=== PATIENT | female | born 1950 | race Caucasian/White ===

== ENCOUNTER 2020-03-11 14:58 | Observation (INO) | payer MEDICARE, BC ==
[2020-03-11] MEDS ORDERED: Aspirin 81 mg Enteric Coated Tablet ONE ×2 (15:22→15:28)
[2020-03-11 15:27] LABS: #Basophils 0.1 thou/uL (0.0-0.2); #Lymphocytes 1.8 thou/uL (1.20-3.40); #Monocytes 0.6 thou/uL (0.11-0.59); %Basophils 0.7 % (0.0-1.0); %Eosinophils 0.4 % (0.0-10.0); %Lymphocytes 19.2 % (21.0-51.0); %Monocytes 6.6 % (0.0-10.0); %Neutrophils 73.2 % (42.0-75.0); Hemoglobin 16.5 g/dL (12.0-16.0); Mean Corpuscular HGB CONC 34.3 g/dL (32.0-36.0); Mean Corpuscular Volume 93.4 fL (78.0-98.0); Mean Platelet Volume 7.2 fL (7.4-10.4); Platelet Count 206 thou/uL (130-400); RBC Distribution Width 11.7 % (11.5-14.5); Red Blood Cell (RBC) Count 5.14 mill/uL (4.20-5.40); White Blood Cell (WBC) Count 9.5 thou/uL (4.8-10.8)
[2020-03-11] MEDS ORDERED: Nitroglycerin 2% Ointment 1 INCH/1 GM Packet ONE (15:28)
[2020-03-11] MEDS ORDERED: Magnesium 2 GM/50 ML BAG (IN WATER) ONE (15:28)
[2020-03-11 15:51] LABS: ALT (SGPT) 19 U/L (8-55); AST (SGOT) 16 U/L (5-34); Albumin 4.8 g/dL (3.4-4.8); Alkaline Phosphatase 93 U/L (40-110); Anion Gap 15 mmol/L (10-20); BUN (Urea Nitrogen) 21 mg/dL (9.8-20.1); Bilirubin, Total 0.7 mg/dL (0.2-1.2); Calc. Creatinine Clearance 0 mL/min (70-130); Calcium 9.8 mg/dL (7.8-10.44); Carbon Dioxide 23 mmol/L (23-31); Chloride 103 mmol/L (98-107); Estimated GFR-MDRD 50; Globulin 3.3 g/dL (2.4-3.5); Glucose 103 mg/dL (80-115); Potassium 4.3 mmol/L (3.5-5.1); Protein, Total 8.1 g/dL (6.0-8.3); Sodium 137 mmol/L (136-145)
--- NOTE | 2020-03-11 15:53 | RAD ---
PORTABLE CHEST: INDICATION: Hypertension. COMPARISON: 12/16/2013. FINDINGS: Lungs appear clear. No infiltrate or vascular congestion. Heart size upper normal and stable. IMPRESSION: No acute process. POS: AGW
[2020-03-11 16:03] LABS: Magnesium 2.3 mg/dL (1.6-2.6)
[2020-03-11 16:10] LABS: Bacteria/HPF None Seen HPF (None Seen); Bilirubin Negative (Negative); Blood, Urine Negative (Negative); Clarity Clear (Clear); Glucose, Urine (Dipstick) Normal (Negative); Ketone, Urine 10 mg/dL (Negative); Leukocyte 250 Leu/uL (Negative); Nitrite Negative (Negative); Protein, Urine (Dipstick) Negative (Neg-Trace); RBC/HPF 0-3 HPF (0-3); Specific Gravity, Urine 1.012 (1.002-1.036); Squamous Epithelial 0-3 HPF (0-3); Urobilinogen Normal mg/dL (Less than 2); pH, Urine 6.5 (5.0-9.0)
[2020-03-11 20:13] VITALS: BMI 27.9
[2020-03-11] MEDS ORDERED: cloNIDine 0.1 MG TAB PO PRN (20:32)
--- NOTE | 2020-03-11 21:29 | HP ---
TIME OF ASSESSMENT: 1800 CHIEF COMPLAINT: Chest tightness and elevated blood pressure. HISTORY OF PRESENT ILLNESS: Ms. Ramirez is a 69-year-old woman, who presented to the emergency department due to a severely elevated blood pressure in the 220s with associated tingling to the left side of her face. She touched base with her auto parts manager, Dr. Brice, who advised her to come in to the emergency department. Patient states she has been struggling with control of her blood pressure for the last couple of weeks. States she had followup with Dr. Brice and was noted to have a blood pressure in the 150s consistently despite being on ramipril. It was decided at that time to add on p.r.n. clonidine. She states she was seen at [facility] recently due to significantly elevated blood pressure in the 190s. She was sent home on metoprolol and states that it made her feel badly. She reports feeling as if it was bringing her blood pressure down too much. The patient therefore discontinued and followed up with her auto parts manager, Dr. Brice, who then put her on low-dose Coreg. Patient states the moment she began taking Coreg, she was feeling nauseated. Reports having "awareness of my heart." Denies experiencing palpitations and denies any chest pain, but does report feeling tightness on occasion. States that she felt "completely off." States she tends to have unusual reactions to most medications. She called the auto parts manager election judge, which was Dr. Carr and was advised to stop the Coreg. For her elevated blood pressure, she was advised to take clonidine. Today, she could not get control of her blood pressure with the ramipril and clonidine and therefore opted to come into the ER. She does recall having some tightness in her chest again today. Denies any shortness of breath. Has not had any cough or hemoptysis. At present, she is asymptomatic. Her symptoms have resolved. She was supposed to see Dr. Brice today, but since she felt unwell, she had been advised to come to the ED. Patient reports having a cath in the past, but does not recall how long ago. Patient did report suspicion of being dehydrated. States that she has not had much fluid intake in the last 2 to 3 days and wonders if that is what made her feel generally unwell. EMERGENCY DEPARTMENT COURSE: In the emergency department, she had an EKG done showing normal sinus rhythm with a heart rate of 99, QTc 444. A chest x-ray was done and showed no acute process. She had laboratory studies done, which showed white count 9.5, hemoglobin 16.5, platelets 206, hematocrit 48, and neutrophils 73.2. D-dimer negative. BUN 21, creatinine 1.09, and GFR 50. In the past, her GFR has been in the high 60s. Glucose 103. LFTs unremarkable. Troponin negative x2. Lactic acid normal. Urinalysis done showed 250 leukocytes, 10 ketones, and 7 to 10 white blood cells. No bacteria. No nitrites. She was started on levofloxacin for suspected UTI, was given 1 L of normal saline. She was given 2 g of magnesium sulfate, 325 mg of aspirin, and put on Nitro-Bid 1 inch. Her blood pressure did eventually improve to 137/70. PAST MEDICAL HISTORY: 1. Hypertension. 2. GERD. 3. Hiatal hernia. 4. History of SVT, status post ablation. PAST SURGICAL HISTORY: 1. Cardiac ablation. 2. Appendectomy. 3. . 4. Hysterectomy. SOCIAL HISTORY: Patient denies any tobacco use, alcohol consumption, or illicit drug use. She is fully independent. Lives with her . ALLERGIES: 1. HYDROCHLOROTHIAZIDE. 2. NIACIN. 3. PENICILLIN. 4. SULFA. CURRENT MEDICATIONS: 1. Clonidine. 2. Xanax. 3. Ramipril. 4. Prilosec. PHYSICAL EXAMINATION: GENERAL: Patient appears thin, well developed, well nourished, is in no acute distress. VITAL SIGNS: Temperature 97.7, pulse 96, blood pressure 137/70, respirations 15, and O2 saturation 98% on room air. HEENT: Normocephalic and atraumatic. Pupils are equal, round, and reactive to light. Sclerae icterus. Oropharynx is clear. NECK: Supple. LUNGS: Clear to auscultation bilaterally, without any wheezes, rales, or rhonchi. CARDIAC: Regular rate and rhythm. No reproducible chest tenderness on palpation. ABDOMEN: Soft, nontender, and nondistended. No epigastric discomfort. No guarding or rigidity. No renal angle tenderness. EXTREMITIES: No lower leg swelling or edema. Peripheral pulses strong and equal bilaterally. SKIN: Warm and dry. There is some reduced skin turgor. NEUROLOGIC: Alert and oriented x3. No neuro deficits on exam. Speech normal. Facial sensation normal. Facial movements intact. No neuro deficits. INVESTIGATIONS: As mentioned above in HPI. IMPRESSION AND PLAN: Ms. Ramirez is a pleasant 69-year-old woman, who is being admitted for management of the followin. Hypertensive urgency. Appears to be under control following Nitro-Bid and magnesium given in the ED. Blood pressure has improved to the 130s. We will continue with p.r.n. antihypertensives. Patient is requesting to be seen by her auto parts manager, Dr. Brice, for further management of her blood pressure given her sensitivity to most medications. 2. Chest pain. Patient with complaints of chest tightness associated with the elevated blood pressure. States that has happened in the recent days and she is unable to describe between indigestion versus cardiac type pain. States it feels differently than it has in the past with indigestion. We will continue to trend troponins. EKG showed normal sinus rhythm with no ST changes or T-wave abnormalities. We will keep her n.p.o. and schedule stress test for the morning. 3. Gastroesophageal reflux disease. We will start pantoprazole 20 mg p.o. b.i.d. 4. Urinary tract infection. Patient was started on levofloxacin in the ED for presumed urinary tract infection. Urinalysis, however, shows 250 leukocytes, 7 to 10 white blood cells, no bacteria. No nitrites. She has been afebrile and denies any urinary symptoms. We will hold further antibiotics until urine culture done. No other source for possible infection. 5. Dehydration. Patient is clinically dehydrated with reduced skin turgor and states she has been drinking less over the last 3 days. Creatinine is normal, but GFR slightly reduced from baseline. We will give gentle hydration. 6. Deep venous thrombosis prophylaxis with mechanical SCDs. 7. Code status. Full. Surrogate decision maker is her , Carlos A Ramirez. 8. Primary care physician is Dr. Brian Sherwood. Case discussed with attending, who agrees with plan of care as described above. Job ID: [id number]
[2020-03-11 21:50] LABS: Troponin I Less than 0.010 ng/mL (< 0.028)
[2020-03-11] MEDS: Sodium Chloride 0.45% 1,000 ML IV SCH (23:32)
[2020-03-12 04:56] LABS: Anion Gap 12 mmol/L (10-20); BUN (Urea Nitrogen) 17 mg/dL (9.8-20.1); Calc. Creatinine Clearance 83 mL/min (70-130); Calcium 8.6 mg/dL (7.8-10.44); Carbon Dioxide 21 mmol/L (23-31); Chloride 109 mmol/L (98-107); Estimated GFR-MDRD 70; Glucose 95 mg/dL (80-115); Potassium 4.3 mmol/L (3.5-5.1); Sodium 138 mmol/L (136-145)
[2020-03-12 05:15] LABS: #Lymphocytes 1.9 thou/uL (1.20-3.40); #Monocytes 0.6 thou/uL (0.11-0.59); #Neutrophils 3.3 thou/uL (1.40-6.50); %Basophils 0.6 % (0.0-1.0); %Eosinophils 0.7 % (0.0-10.0); %Lymphocytes 32.2 % (21.0-51.0); %Monocytes 9.7 % (0.0-10.0); %Neutrophils 56.8 % (42.0-75.0); Hemoglobin 13.1 g/dL (12.0-16.0); Mean Corpuscular HGB CONC 31.9 g/dL (32.0-36.0); Mean Corpuscular Hemoglobin 29.9 pg (27.0-31.0); Mean Corpuscular Volume 93.8 fL (78.0-98.0); Mean Platelet Volume 7.7 fL (7.4-10.4); Platelet Count 176 thou/uL (130-400); RBC Distribution Width 11.8 % (11.5-14.5); Red Blood Cell (RBC) Count 4.37 mill/uL (4.20-5.40); White Blood Cell (WBC) Count 5.8 thou/uL (4.8-10.8)
--- NOTE | 2020-03-12 09:57 | PDOC.HOSPP ---
- Subjective Encounter Date: 03/12/20 Encounter Time: 09:49 Subjective: feels welltoday,long hx por BPcontrol,multiple madicine intolerance - Objective Vital Signs & Weight: Vital Signs (12 hours) Temp Pulse Resp BP Pulse Ox 03/12/20 08:00 97.6 F 63 16 116/63 93 L 03/12/20 03:00 98.3 F 71 18 107/56 L 96 03/11/20 23:38 83 110/64 Weight Weight 173 lb 4.8 oz I&O: 03/11/20 03/12/20 03/13/20 06:59 06:59 06:59 Intake Total 600 Output Total 800 Balance -200 Result Diagrams: 03/12/20 04:25 03/12/20 04:25 Additional Labs: Accuchecks 03/11/20 19:45 POC Glucose 83 Hospitalist ROS - Medication Medications: Active Medications Generic Name Dose Route Start Last Admin Trade Name Freq PRN Reason Stop Dose Admin Clonidine 0.1 mg 03/11/20 20:32 03/11/20 20:55 Catapres PO 0.1 mg Q4H PRN Administration SBP Greater Than 180 Sodium Chloride 1,000 mls @ 50 mls/hr 03/11/20 21:00 03/11/20 23:32 1/2 Normal Saline IV 1,000 mls .Q20H ATTILA Administration Pantoprazole Sodium 20 mg 03/11/20 21:00 03/12/20 08:34 Protonix PO 20 mg BID ATTILA Administration - Exam General Appearance: awake alert Neck: no JVD Heart: RRR, no murmur Respiratory: CTAB Gastrointestinal: soft, non-tender, normal bowel sounds Extremities: no edema Hosp A/P (1) Hypertensive urgency Code(s): I16.0 - HYPERTENSIVE URGENCY Status: Acute (2) Chest pain Code(s): R07.9 - CHEST PAIN, UNSPECIFIED Status: Acute Qualifiers: Chest pain type: unspecified Qualified Code(s): R07.9 - Chest pain, unspecified (3) GERD (gastroesophageal reflux disease) Code(s): K21.9 - GASTRO-ESOPHAGEAL REFLUX DISEASE WITHOUT ESOPHAGITIS Status: Chronic - Plan stableat present,await cardiology input
--- NOTE | 2020-03-12 14:04 | CON ---
DATE OF CONSULTATION: 03/12/2020 REASON FOR CONSULTATION: Hypertension. HISTORY OF PRESENT ILLNESS: Ms. Ramirez is a very pleasant 69-year-old woman whom I have seen and evaluated in the past. She has had difficulty with blood pressure recently. Unfortunately, Ms. Ramirez has had side effects to several medications including calcium channel blockers and beta blockers. She also had a cough related to ramipril, this has limited the medications that she has been on recently. She recently had her beta-yazan changed to Coreg. She states she developed chest pain during this time, which was mild. Blood pressure at that time was also in the 220 systolic range. After stopping Coreg, her symptoms resolved. She just had 1 episode. Her CKs and troponins have been negative. Her HEART score is less than is 3 or less. PERTINENT ALLERGIES/SIDE EFFECTS: Penicillin, erythromycin, tetracyclines, hydrochlorothiazide, Norvasc, beta blockers. PAST MEDICAL HISTORY: Hypertension, tachycardia, SVT. HOME MEDICATIONS: Pantoprazole. PAST SURGICAL HISTORY: 1. SVT ablation. 2. Hysterectomy. FAMILY HISTORY: Negative for CAD. REVIEW OF SYSTEMS: A 10-point review of systems is reviewed as above, otherwise negative. PHYSICAL EXAMINATION: VITAL SIGNS: Blood pressure 116/63, pulse 63, temp 97.6. GENERAL: Patient is a pleasant female who is in no acute distress. The patient appears their stated age. NEUROLOGIC: The patient is alert and oriented x3 with no focal neurologic deficits. HEENT: Sclerae without icterus. Mouth has moist mucous membranes with normal pallor. NECK: No JVD. Carotid upstroke brisk. No bruits bilaterally. LUNGS: Clear to auscultation with unlabored respirations. BACK: No scoliosis or kyphosis. CARDIAC: Regular rate and rhythm with normal S1 and S2. No S3 or S4 noted. No significant rubs, murmurs, thrills, or gallops noted throughout the precordium. PMI is not displaced. There is no parasternal heave. ABDOMEN: Soft, nontender, nondistended. No peritoneal signs present. No hepatosplenomegaly. No abnormal striae. PERTINENT LABORATORY DATA: CK troponin negative. Hemoglobin 13.1. IMAGING: EKG normal sinus rhythm, normal EKG. IMPRESSION: 1. Hypertensive urgency. 2. Atypical chest pain. RECOMMENDATIONS: Ms. Ramirez's HEART score is felt to be 3 or less. Her CKs and troponins are negative. She has less than 3 risk factors for underlying coronary artery disease with a negative troponin and negative EKG. At this point, we will continue conservative therapy. I had a long discussion with Ms. Ramirez about her side effects to medications. At some point, she may need to tolerate some of the side effects to get better blood pressure management. She understands. At this point, would recommend adding Benicar 20 mg 1 p.o. q p.m. with first dose now. May consider adding low-dose Norvasc. We will also discuss in detail her side effects to hydrochlorothiazide, which may be more consistent with a side effect and not a true allergy. We will watch over today and if blood pressure is more stable, it would be okay to discharge home in a.m. Job ID: [id number]
[2020-03-12] MEDS: Sodium Chloride 0.45% 1,000 ML IV SCH (17:23)
[2020-03-13] MEDS ORDERED: Losartan 25 MG TAB PO SCH (09:00)
--- NOTE | 2020-03-13 09:38 | DIS ---
DATE OF ADMISSION: 03/11/2020 DATE OF DISCHARGE: 03/13/2020 PRIMARY CARE PROVIDER: Brian Sherwood MD FINAL DIAGNOSES: Hypertensive urgency, essential hypertension, atypical chest pain, and gastroesophageal reflux disease. DISCHARGE MEDICATIONS: Losartan 25 mg p.o. daily. ALLERGIES: HYDROCHLOROTHIAZIDE, PENICILLIN, AND SULFONAMIDES. CODE STATUS: Full. PENDING AT TIME OF DISCHARGE: Nothing. DIET: Heart healthy. CONSULTATIONS: Srinivas Brice MD, Cardiology. HOSPITAL COURSE: The patient presented to the emergency room with chest tightness and high blood pressure. She was referred to the Hospitalist Service. Her blood pressure came down with some Nitro-Bid ointment in the ER. She requested to be seen by our loss control technician, Dr. Brice. She complained also of some urinary tract discomfort. Urinary culture was negative. Blood cultures were negative. CBC on 03/11; white count 9.5, hemoglobin 16.5, platelet count 206,000. On 03/12, white count 5.8, hemoglobin 13.1, platelet count 176,000. D-dimer 0.27. Common metabolic profile normal except for a BUN of 21, magnesium was 2.3. Lactic acid 1.4. Cardiac enzymes 0.01 and 0.02 of troponins. Chest x-ray was unremarkable. Stress test was ordered, but canceled by Dr. Brice. Her medicines were changed to losartan 25 mg p.o. b.i.d. from ramipril by Dr. Brice. She has currently last three blood pressures, 145/61, 130/56, and 144/64. Cardiac exam normal. She is being discharged with a prescription for losartan to follow up with Dr. Brice. No procedures were done. Job ID: [id number]
[2020-03-13 11:17] VITALS: BP 130/72; TEMP 98.7
== END 2020-03-13 12:12 | disposition home or self-care (01) ==
LOC: ERS 14:58 → ERHOLD 17:08 → 2NO 20:02
PROVIDERS: ADMIT Internal Medicine; ATTEND Internal Medicine
DX: I16.0 Hypertensive urgency (principal); R07.89 Other chest pain; K21.9 Gastro-esophageal reflux disease without esophagitis; I10 Essential (primary) hypertension; E86.0 Dehydration; Z79.899 Other long term (current) drug therapy; Z88.0 Allergy status to penicillin; Z88.2 Allergy status to sulfonamides; Z88.8 Allergy status to other drugs, medicaments and biological substances
CPT/HCPCS: 36415; 36416; 36600; 71045; 80048; 80053; 81003; 81015; 82550; 83605; 83690; 83735; 84443; 84484; 85025; 85379; 87040; 87086; 93005; 96365; 96366; 96367; G0378; J1956; J3475

== ENCOUNTER 2020-05-16 07:27 | Outpatient (CLI) | payer MEDICARE, BC ==
--- NOTE | 2020-05-16 10:49 | CT ---
CT ABDOMEN AND PELVIS WITHOUT AND WITH IV CONTRAST: HISTORY: Hematuria. Chronic cystitis. FINDINGS: The lung bases are clear. Each renal collecting system, ureter, and the urinary bladder are decompre ssed without stone evident. No filling defects are apparent within the partially visualized urinary collecting system on the delayed images. No renal lesion is evident. Urinary bladder is unremarkabl e. 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 The largest is a slightly lobular, septated cy st within the left liver lobe measuring up to 2.6 x 1.8 cm greatest diameters on the axial images. T here is mild calcification in the coronary arteries and other arterial structures. 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 Degenerative changes of the lumbar spine with posterior disk bulge is apparent at the T11-12 and L4-5 levels. IMPRESSION: 1. No urinary tract abnormalities are demonstrated. 2. Inferior vena cava duplication. 3. Atherosclerosis. POS: BST
[2020-05-16] MEDS ORDERED: Iopamidol-370 76% 500 ML 1 ML ONE (12:51)
== END 2020-05-16 07:28 | disposition home or self-care (01) ==
LOC: BICCT 07:27
PROVIDERS: ATTEND Urology
DX: N30.21 Other chronic cystitis with hematuria (principal); R31.0 Gross hematuria; I25.10 Atherosclerotic heart disease of native coronary artery without angina pectoris; Q24.8 Other specified congenital malformations of heart
CPT/HCPCS: 74178; 82565; Q9967

== ENCOUNTER 2023-03-18 09:29 | Inpatient (IN) | payer MEDICARE ==
[2023-03-18 09:47] LABS: #Monocytes 0.8 thou/uL (0.11-0.59); #Neutrophils 11.8 thou/uL (1.40-6.50); %Basophils 0.1 % (0.0-1.0); %Lymphocytes 9.7 % (21.0-51.0); %Monocytes 5.4 % (0.0-10.0); %Neutrophils 84.3 % (42.0-75.0); Hematocrit 42.6 % (36.0-47.0); Mean Corpuscular HGB CONC 32.9 g/dL (32.0-36.0); Mean Corpuscular Hemoglobin 30.4 pg (27.0-31.0); Mean Corpuscular Volume 92.4 fl (78.0-98.0); Mean Platelet Volume 9.6 fL (7.4-10.4); Platelet Count 197 10x3/uL (130-400); RBC Distribution Width 12.7 % (11.5-14.5); Red Blood Cell (RBC) Count 4.61 mill/uL (4.20-5.40)
[2023-03-18 10:04] LABS: PTT 24.9 sec (22.9-36.1)
[2023-03-18 10:05] LABS: Prothrombin Time 13.1 sec (12.0-14.7)
[2023-03-18 10:19] LABS: Troponin I Less than 0.010 ng/mL (< 0.028)
[2023-03-18 10:24] LABS: Bacteria/HPF None Seen HPF (None Seen); Bilirubin Negative (Negative); Blood, Urine Negative (Negative); CAUTI Indications for Culture Alt mental st,lethar; Clarity Clear (Clear); Glucose, Urine (Dipstick) Normal (Negative); Ketone, Urine Negative (Negative); Leukocyte Negative Leu/uL (Negative); Nitrite Negative (Negative); Protein, Urine (Dipstick) Negative (Neg-Trace); RBC/HPF 0-3 HPF (0-3); Specific Gravity, Urine 1.012 (1.002-1.036); Squamous Epithelial 0-3 HPF (0-3); Urobilinogen Normal mg/dL (Less than 2); WBC/HPF 0-3 HPF (0-3)
[2023-03-18] MEDS ORDERED: Aspirin Chewable 81 MG TAB ONE (10:27)
[2023-03-18 10:38] LABS: Urine Culture Reflex No No
[2023-03-18 10:42] LABS: ALT (SGPT) 38 U/L (8-55); AST (SGOT) 24 U/L (5-34); Alkaline Phosphatase 60 U/L (40-110); Anion Gap 18 mmol/L (10-20); BUN (Urea Nitrogen) 18 mg/dL (9.8-20.1); Bilirubin, Total 0.5 mg/dL (0.2-1.2); Calc. Creatinine Clearance 0 mL/min (70-130); Calcium 9.3 mg/dL (7.8-10.44); Carbon Dioxide 17 mmol/L (23-31); Chloride 107 mmol/L (98-107); Estimated GFR 65; Globulin 3.3 g/dL (2.4-3.5); Glucose 114 mg/dL (80-115); Lipase 5 U/L (8-78); Potassium 4.5 mmol/L (3.5-5.1); Protein, Total 7.3 g/dL (5.8-8.1); Sodium 137 mmol/L (136-145)
[2023-03-18] MEDS ORDERED: Morphine 4 MG/ML VIAL ONE (11:35)
[2023-03-18] MEDS ORDERED: Iopamidol-370 76% 500 ML MDV (1 ML CHARGE) ONE (12:43)
[2023-03-18 13:16] LABS: Lactic Acid 1.5 mmol/L (0.5-2.2)
[2023-03-18 13:24] LABS: Troponin I Less than 0.010 ng/mL (< 0.028)
[2023-03-18 15:26] VITALS: BMI 31.6
[2023-03-18] MEDS ORDERED: Acetaminophen 325 MG TAB ONE (15:37)
[2023-03-18] MEDS: Acetaminophen 325 MG TAB PO PRN ×3 (15:45→23:26)
[2023-03-18] MEDS: Sodium Chloride 0.9% 1,000 ML IV SCH (15:45)
[2023-03-18] MEDS: Atorvastatin Calcium 40 MG TAB PO SCH (20:08)
[2023-03-19 05:22] LABS: Hemoglobin A1c 5.5 % (4.0-6.0)
[2023-03-19 05:37] LABS: Anion Gap 11 mmol/L (10-20); BUN (Urea Nitrogen) 21 mg/dL (9.8-20.1); Calc. Creatinine Clearance 87 mL/min (70-130); Calcium 8.5 mg/dL (7.8-10.44); Carbon Dioxide 23 mmol/L (23-31); Cardiac Risk 5.9 (Less than 4.5); Chloride 109 mmol/L (98-107); Cholesterol 214 mg/dl (< 200 Desired); Estimated GFR 74; Glucose 93 mg/dL (80-115); HDL Cholesterol 36 mg/dL (>60 Neg Risk); LDL Cholesterol, Calculated 161 mg/dL; Potassium 3.9 mmol/L (3.5-5.1); Sodium 139 mmol/L (136-145); Triglycerides 87 mg/dL (Less than 150)
[2023-03-19] MEDS: Sodium Chloride 0.9% 1,000 ML IV SCH ×2 (06:45→18:51)
[2023-03-19] MEDS ORDERED: ALPRAZolam 0.25 MG TAB PO PRN (08:49)
[2023-03-19] MEDS: Acetaminophen 325 MG TAB PO PRN ×2 (09:13→16:35)
[2023-03-19] MEDS: Aspirin 81 mg Enteric Coated Tablet PO SCH (09:13)
[2023-03-19] MEDS ORDERED: UROGESIC BLUE PO PRN (10:07)
[2023-03-19] MEDS ORDERED: PROPOFOL 200 MG/20 ML VIAL ONE (10:28)
[2023-03-19] MEDS ORDERED: Ondansetron PF 4 MG/2 ML Vial ONE (10:28)
[2023-03-19] MEDS ORDERED: Lidocaine 1% PF 5 ML VIAL ONE (10:28)
[2023-03-19] MEDS ORDERED: fentaNYL 50 mcg/mL 1 mL Vial ONE ×2 (10:55→12:07)
[2023-03-19] MEDS ORDERED: Famotidine/PF 20 mg/2ml Vial ONE (11:04)
[2023-03-19] MEDS ORDERED: [UNRECOGNIZED DRUG - OTHER] PO PRN (18:05)
[2023-03-19] MEDS ORDERED: Acetaminophen/Codeine 30-300mg Tablet PO PRN (18:05)
[2023-03-19] MEDS ORDERED: Fioricet 325/50/40 mg Tablet PO PRN (18:08)
[2023-03-19] MEDS ORDERED: hydrALAZINE 20 MG/ML VIAL SLOW IVP PRN (18:40)
[2023-03-19] MEDS: Atorvastatin Calcium 40 MG TAB PO SCH (20:24)
[2023-03-20] MEDS: Aspirin 81 mg Enteric Coated Tablet PO SCH (08:57)
[2023-03-20] MEDS ORDERED: Losartan 25 MG TAB PO SCH ×2 (09:00)
[2023-03-20 12:21] VITALS: TEMP 98.3
[2023-03-20] MEDS: Acetaminophen 325 MG TAB PO PRN (13:00)
[2023-03-20] MEDS ORDERED: Fioricet 325/50/40 mg Tablet PO SCH (15:00)
[2023-03-20 19:05] VITALS: BP 145/76
== END 2023-03-20 17:34 | disposition home or self-care (01) | DRG 103 ==
LOC: ERS 09:29 → ERHOLD 11:53 → 2SE 17:56 → OBSVTOIN 03-19 10:43
PROVIDERS: ADMIT Internal Medicine; ATTEND Internal Medicine
PROC: 4A10X4Z Monitoring of Central Nervous Electrical Activity, External Approach (ICD-10-PCS; principal; 2023-03-19)
DX: G43.109 Migraine with aura, not intractable, without status migrainosus (principal); E87.20 Acidosis, unspecified; R47.01 Aphasia; I16.0 Hypertensive urgency; K21.9 Gastro-esophageal reflux disease without esophagitis; R91.1 Solitary pulmonary nodule; Z88.8 Allergy status to other drugs, medicaments and biological substances; Z88.0 Allergy status to penicillin; Z88.2 Allergy status to sulfonamides; Z79.899 Other long term (current) drug therapy; Z90.49 Acquired absence of other specified parts of digestive tract; Z90.710 Acquired absence of both cervix and uterus
CPT/HCPCS: 36415; 36416; 70450; 70496; 70498; 70551; 71045; 80048; 80061; 81001; 83036; 83605; 83690; 83735; 83880; 84443; 84484; 85025; 85610; 85652; 85730; 86140; 93005; 93306; 94760; 95712; 95819; 95957; 96374; G0378; J2270; J2405; J2704; J3010; J7050; Q9967; S0028